=== PATIENT | female | born 1985 | race Caucasian/White ===

== ENCOUNTER 2021-07-22 08:15 | Day surgery (SDC) | payer OTHER ==
[~2021-07-22] VITALS: Ht 170.2 cm; Wt 158.7 kg
[~2021-07-22 08:15] MED LIST: ALBU8HFA2 INH; AMOX500 PO; CODACEE120 PO; CRUTCH2 USE; ESCI10; HYDACE5 PO; IBUP200 PO; METF500; NAPR500 PO; OMEP20ER PO; PENVK500 PO; RANI150 PO; RXTRAM50 PO; SUCR1 PO; TOBR.3OPSO OP; TRAM50 PO
--- NOTE | 2021-07-22 08:54 | NUR ---
[facility] in [facility] warming gown applied. History, Chart, Medications and Allergies reviewed before start of procedure.History, Chart, Medications and Allergies reviewed before start of procedure.Patient confirms NPO status and agrees with scheduled surgery. Pre-Op teaching done. Pt verbalizes understanding. Patient States Post-Procedure ride home has been arranged.
--- NOTE | 2021-07-22 09:42 | NUR ---
07/22/21 0942 Lexis Brown MONITOR INTACT WITH CONTINUOUS PULSE OXIMETRY AND INTERMITTENT BP. O2 VIA POM INTACT THROUGHOUT SEDATION/PROCEDURE. See Anesthesia record
--- NOTE | 2021-07-22 10:13 | NUR ---
PT AXOX4, ABLE TO REPOSITION SELF IN BED, SITTING UP, VISITING WITH NURSE AT BEDSIDE, REQUESTING PO FLUIDS.
--- NOTE | 2021-07-22 10:16 | NUR ---
PT TOLERATING PO FLUIDS AND FOOD, REQUESTING TO GO HOME.
--- NOTE | 2021-07-22 10:18 | NUR ---
60MG OF 2% LIDOCAINE ATOMIZER TO BACK OF THROAT PRIOR TO PROCEDURE.
--- NOTE | 2021-07-22 10:37 | NUR ---
Patient up to Ambulate independently. Gait steady. Discharge instructions reviewed with patient. Patient verbalizes understanding. Copy given to patient to take home. Patient States Post-Procedure ride home has been arranged. Discharged via wheelchair to private car for ride home. ALL BELONGINGS RETURNED TO PATIENT THAT SHE CAME TO STEPDOWN UNIT WITH.
== END 2021-07-22 22:44 | disposition home or self-care (01) ==
LOC: ORSCMMR 08:15 → ORD 09:45 → ORSCMMR 09:45
PROVIDERS: Student in an Organized Health Care Education/Training Program
PROC: 0DB68ZX Excision of Stomach, Via Natural or Artificial Opening Endoscopic, Diagnostic (ICD-10-PCS; principal; 2021-07-22 09:45)
PROC: 0DB88ZX Excision of Small Intestine, Via Natural or Artificial Opening Endoscopic, Diagnostic (ICD-10-PCS; principal; 2021-07-22 09:45)
PROC: 0DB48ZX Excision of Esophagogastric Junction, Via Natural or Artificial Opening Endoscopic, Diagnostic (ICD-10-PCS; principal; 2021-07-22 09:45)
DX: Z01.818 Encounter for other preprocedural examination (principal); R23.4 Changes in skin texture; K59.09 Other constipation; K21.9 Gastro-esophageal reflux disease without esophagitis; K26.9 Duodenal ulcer, unspecified as acute or chronic, without hemorrhage or perforation; F32.A Depression, unspecified; E66.01 Morbid (severe) obesity due to excess calories; Z68.43 Body mass index [BMI] 50.0-59.9, adult; K29.70 Gastritis, unspecified, without bleeding; Z87.891 Personal history of nicotine dependence; Z79.899 Other long term (current) drug therapy
CPT/HCPCS: 88305; 88312; 88342; J2001; J2704; J7120